=== PATIENT | male | born 1995 | race Caucasian/White ===

== ENCOUNTER 2017-02-24 21:00 | Inpatient (IN) | payer OTHER ==
[~2017-02-24] VITALS: Ht 172.7 cm; Wt 59.0 kg
[~2017-02-24 21:00] MED LIST: AMOXICILLIN 50500 MG; FLEXERIL PO; TESSALON PERLE100 MG; ULTRAM 50MG TAB50 MG PO
[2017-02-24] MEDS ORDERED: CARISOPRODOL 3350 MG PO (21:17)
[2017-02-24] MEDS ORDERED: NEURONTIN 300300 M1 PO (21:17)
[2017-02-24 21:18] VITALS: BP 117/73
[2017-02-24 21:18] LABS: URINE BLOOD NEGATIVE (Negative); URINE CLARITY CLEAR; URINE COLOR YELLOW; URINE GLUCOSE-RANDOM NEGATIVE (Negative); URINE KETONES NEGATIVE (Negative); URINE LEUKOCYTES-REFLEX NEGATIVE (Negative); URINE NITRITE-REFLEX NEGATIVE (Negative); URINE PROTEIN NEGATIVE (Negative); URINE SPECIFIC GRAVITY >= 1.030 (1.005-1.030)
[2017-02-24 21:19] LABS: ICTOTEST (BILI CONFIRMATORY) Negative (Negative); URINE BILIRUBIN 1+ (Negative)
[2017-02-24 21:30] LABS: ABSOLUTE EOSINOPHILS 0.1 thou/uL (0.0-0.7); ABSOLUTE LYMPHOCYTES 1.2 thou/uL (0.8-5.3); ABSOLUTE MONOCYTES 0.5 thou/uL (0.0-1.2); ABSOLUTE NEUTROPHILS 5.5 thou/uL (1.6-8.1); BASOPHILS 0.7 %; EOSINOPHILS 0.7 %; HEMATOCRIT 45.1 % (42.0-52.0); HEMOGLOBIN 15.6 gm/dL (14.0-18.0); LYMPHOCYTES 16.8 %; MCH 30.1 pg (26.0-34.0); MCHC 34.6 g/dL (28.0-37.0); MCV 87.1 fL (80.0-100.0); MPV 8.5 fl. (7.2-11.1); NUCLEATED RBCS 0 /100WBC; PLATELET COUNT* 220 thou/uL (150-400); POLYS 74.8 %; RBC 5.18 mil/uL (4.50-6.00); RDW-CV 13.5 % (10.5-14.5); WBC 7.3 thou/uL (4.0-11.0)
[2017-02-24 21:38] LABS: CALCIUM 8.6 mg/dL (8.5-10.1); CREATININE 0.9 mg/dL (0.6-1.3); POTASSIUM 3.9 mmol/L (3.5-5.1)
[2017-02-24 21:42] LABS: ALBUMIN 4.1 g/dL (3.4-5.0); TOTAL BILIRUBIN 5.3 mg/dL (<0.1-1.0); TOTAL PROTEIN 7.1 g/dL (6.4-8.2)
[2017-02-25 01:15] VITALS: BP 117/73
[2017-02-25 01:20] VITALS: BP 105/61
[2017-02-25 07:55] VITALS: BP 109/68
[2017-02-25 12:44] LABS: ABSOLUTE LYMPHOCYTES 1.3 thou/uL (0.8-5.3); ABSOLUTE MONOCYTES 0.3 thou/uL (0.0-1.2); ABSOLUTE NEUTROPHILS 2.8 thou/uL (1.6-8.1); BASOPHILS 0.8 %; HEMATOCRIT 40.5 % (42.0-52.0); HEMOGLOBIN 14.2 gm/dL (14.0-18.0); LYMPHOCYTES 29.5 %; MCH 30.4 pg (26.0-34.0); MCHC 35.2 g/dL (28.0-37.0); MCV 86.4 fL (80.0-100.0); MONOCYTES 7.1 %; MPV 8.1 fl. (7.2-11.1); NUCLEATED RBCS 0 /100WBC; PLATELET COUNT* 169 thou/uL (150-400); POLYS 61.6 %; RBC 4.68 mil/uL (4.50-6.00); RDW-CV 13.4 % (10.5-14.5); WBC 4.5 thou/uL (4.0-11.0)
[2017-02-25 13:06] LABS: ALBUMIN 3.6 g/dL (3.4-5.0); CALCIUM 8.2 mg/dL (8.5-10.1); CREATININE 0.9 mg/dL (0.6-1.3); POTASSIUM 3.8 mmol/L (3.5-5.1); TOTAL BILIRUBIN 7.6 mg/dL (<0.1-1.0); TOTAL PROTEIN 6.2 g/dL (6.4-8.2)
[2017-02-25 16:00] VITALS: BP 97/57
[2017-02-25 20:30] VITALS: BP 102/61
[2017-02-26 00:57] VITALS: BP 102/61
[2017-02-26 03:54] VITALS: BP 97/48
[2017-02-26 04:05] LABS: ABSOLUTE EOSINOPHILS 0.1 thou/uL (0.0-0.7); ABSOLUTE LYMPHOCYTES 1.5 thou/uL (0.8-5.3); ABSOLUTE MONOCYTES 0.3 thou/uL (0.0-1.2); ABSOLUTE NEUTROPHILS 2.6 thou/uL (1.6-8.1); BASOPHILS 0.8 %; EOSINOPHILS 2.3 %; HEMOGLOBIN 13.8 gm/dL (14.0-18.0); MCH 30.2 pg (26.0-34.0); MCHC 34.6 g/dL (28.0-37.0); MCV 87.5 fL (80.0-100.0); MONOCYTES 6.2 %; MPV 8.9 fl. (7.2-11.1); NUCLEATED RBCS 0 /100WBC; PLATELET COUNT* 165 thou/uL (150-400); POLYS 57.7 %; RBC 4.58 mil/uL (4.50-6.00); RDW-CV 13.4 % (10.5-14.5); WBC 4.5 thou/uL (4.0-11.0)
[2017-02-26 05:43] LABS: ALBUMIN 3.3 g/dL (3.4-5.0); CALCIUM 7.9 mg/dL (8.5-10.1); MAGNESIUM 2.2 mg/dL (1.8-2.4); POTASSIUM 3.8 mmol/L (3.5-5.1); TOTAL BILIRUBIN 5.3 mg/dL (<0.1-1.0); TOTAL PROTEIN 5.8 g/dL (6.4-8.2)
[2017-02-26 07:45] VITALS: BP 103/59
[2017-02-26 15:58] VITALS: BP 114/68
[2017-02-26 23:30] VITALS: BP 104/67
[2017-02-27 04:47] LABS: HEMATOCRIT 38.2 % (42.0-52.0); HEMOGLOBIN 13.5 gm/dL (14.0-18.0); MCH 30.8 pg (26.0-34.0); MCHC 35.5 g/dL (28.0-37.0); MCV 86.7 fL (80.0-100.0); MPV 8.8 fl. (7.2-11.1); RBC 4.4 mil/uL (4.50-6.00); RDW-CV 13.2 % (10.5-14.5); WBC 5.1 thou/uL (4.0-11.0)
[2017-02-27 04:59] LABS: ALBUMIN 3.3 g/dL (3.4-5.0); CALCIUM 7.9 mg/dL (8.5-10.1); POTASSIUM 3.4 mmol/L (3.5-5.1); TOTAL BILIRUBIN 4.9 mg/dL (<0.1-1.0); TOTAL PROTEIN 5.7 g/dL (6.4-8.2)
[2017-02-27 09:30] VITALS: BP 110/68
[2017-02-28] VITALS: BP 127/79
[2017-02-28 04:00] VITALS: BP 121/77
[2017-02-28 04:47] LABS: ABSOLUTE LYMPHOCYTES 1.2 thou/uL (0.8-5.3); ABSOLUTE MONOCYTES 0.5 thou/uL (0.0-1.2); ABSOLUTE NEUTROPHILS 4.3 thou/uL (1.6-8.1); BASOPHILS 0.5 %; EOSINOPHILS 0.6 %; HEMATOCRIT 41.3 % (42.0-52.0); HEMOGLOBIN 14.7 gm/dL (14.0-18.0); LYMPHOCYTES 19.8 %; MCH 30.5 pg (26.0-34.0); MCHC 35.4 g/dL (28.0-37.0); MCV 85.9 fL (80.0-100.0); MONOCYTES 8.1 %; MPV 8.9 fl. (7.2-11.1); NUCLEATED RBCS 0 /100WBC; PLATELET COUNT* 162 thou/uL (150-400); RBC 4.81 mil/uL (4.50-6.00); RDW-CV 13.4 % (10.5-14.5)
[2017-02-28 05:11] LABS: ALBUMIN 3.3 g/dL (3.4-5.0); CALCIUM 7.9 mg/dL (8.5-10.1); MAGNESIUM 1.9 mg/dL (1.8-2.4); POTASSIUM 3.3 mmol/L (3.5-5.1); TOTAL BILIRUBIN 6.7 mg/dL (<0.1-1.0); TOTAL PROTEIN 5.4 g/dL (6.4-8.2)
[2017-02-28 09:00] VITALS: BP 114/65
[2017-02-28 16:15] VITALS: BP 124/86
[2017-02-28 20:00] VITALS: BP 118/67
[2017-03-01 00:09] VITALS: BP 118/79
[2017-03-01 03:10] VITALS: BP 115/71
[2017-03-01 04:10] VITALS: BP 121/82
[2017-03-01 06:16] LABS: HEMATOCRIT 41.4 % (42.0-52.0); HEMOGLOBIN 14.8 gm/dL (14.0-18.0); MCH 30.3 pg (26.0-34.0); MCHC 35.7 g/dL (28.0-37.0); MCV 84.8 fL (80.0-100.0); MPV 8.6 fl. (7.2-11.1); RBC 4.88 mil/uL (4.50-6.00); RDW-CV 13.4 % (10.5-14.5); WBC 4.6 thou/uL (4.0-11.0)
[2017-03-01 06:28] LABS: ALBUMIN 3.2 g/dL (3.4-5.0); CALCIUM 8.1 mg/dL (8.5-10.1); MAGNESIUM 1.8 mg/dL (1.8-2.4); POTASSIUM 3.9 mmol/L (3.5-5.1); TOTAL BILIRUBIN 8.3 mg/dL (<0.1-1.0); TOTAL PROTEIN 5.8 g/dL (6.4-8.2)
[2017-03-01 10:15] VITALS: BP 103/53
--- NOTE | 2017-03-01 15:36 | S ---
[address] [address] SURGICAL PATH RPT PROCEDURE Name: EDDIE HUERTA Room: [address] IN [facility]#: [id number] Admission: 02/24/17 Date of : 89 Discharge: Report #: [id number] Path Case #: [id number] PATHOLOGY REPORT COLLECTION DATE: 02/27/2017 RECEIVED DATE: 02/28/2017 SUBMITTING PHYS: Dr. Eddie Li OTHER PHYS: Dr. Elvis Amezquita SPECIMEN(S) RECEIVED: A.Gallbladder and contents * * * * * * * * * * * * FINAL DIAGNOSIS: Gallbladder and contents: - Chronic cholecystitis and cholelithiasis. (CHERYL:pit; 03/01/2017) PATHOLOGIST: Mark Neves M.D. REPORT ELECTRONICALLY SIGNED BY: Mark Neves M.D. DATE/TIME: 03/01/2017 15:21 * * * * * * * * * * * * GROSS PATHOLOGY: Received in formalin labeled "Eddie Huerta, gallbladder and contents," is a 9.3 x 3.6 x 2.4 cm, intact gallbladder with dark green, slightly vascular serosal surfaces. Opening the gallbladder reveals dark joaquin, velvety mucosa and an average wall thickness of 0.2 cm. Calculi are present, ranging size from 0.1-0.3 cm, possessing a dark black and sludgy appearance, and feeling friable to the touch. No masses are noted grossly. Financial Services Specialist sections from the body and fundus are submitted along with the proximal margin in cassette A1. (TSD; 02/28/2017) CLINICAL HISTORY: Choledocholithiasis INITIAL CPT CODE(S): A; 40440 Professional services performed [place] [facility] [place] [address] Technical services performed by [facility] at [address] [place] [address], [facility] [address] [address]. [place] [address] SURGICAL PATH RPT PROCEDURE Name: EDDIE HUERTA Room: [address] IN [facility].#: [id number] Admission: 02/24/17 Date of : 89 Discharge: Report #: [id number] Path Case #: [id number] [facility] [place] [address] PHONE: [phone] DIRECTOR: Yehuda Vigil M.D. * * * END OF REPORT * * *
[2017-03-01 20:00] VITALS: BP 122/65
[2017-03-02 04:13] LABS: ALBUMIN 3.1 g/dL (3.4-5.0); DIRECT BILIRUBIN 1.7 mg/dL (<0.1-0.3); TOTAL BILIRUBIN 5.3 mg/dL (<0.1-1.0); TOTAL PROTEIN 5.8 g/dL (6.4-8.2)
[2017-03-02 08:38] VITALS: BP 117/63
[2017-03-02 14:22] LABS: ABSOLUTE EOSINOPHILS 0.1 thou/uL (0.0-0.7); ABSOLUTE LYMPHOCYTES 0.7 thou/uL (0.8-5.3); ABSOLUTE MONOCYTES 0.5 thou/uL (0.0-1.2); ABSOLUTE NEUTROPHILS 4.3 thou/uL (1.6-8.1); BASOPHILS 0.5 %; EOSINOPHILS 2.5 %; HEMATOCRIT 44.5 % (42.0-52.0); HEMOGLOBIN 15.6 gm/dL (14.0-18.0); MCH 30.4 pg (26.0-34.0); MCHC 35.1 g/dL (28.0-37.0); MCV 86.7 fL (80.0-100.0); MONOCYTES 8.3 %; MPV 8.1 fl. (7.2-11.1); NUCLEATED RBCS 0 /100WBC; PLATELET COUNT* 165 thou/uL (150-400); POLYS 75.7 %; RBC 5.13 mil/uL (4.50-6.00); RDW-CV 13.5 % (10.5-14.5); WBC 5.8 thou/uL (4.0-11.0)
[2017-03-02 20:30] VITALS: BP 99/64
[2017-03-03 00:17] VITALS: BP 106/67
[2017-03-03 04:14] LABS: ABSOLUTE EOSINOPHILS 0.3 thou/uL (0.0-0.7); ABSOLUTE LYMPHOCYTES 1.2 thou/uL (0.8-5.3); ABSOLUTE MONOCYTES 0.5 thou/uL (0.0-1.2); ABSOLUTE NEUTROPHILS 3.3 thou/uL (1.6-8.1); BASOPHILS 0.7 %; EOSINOPHILS 4.9 %; HEMATOCRIT 42.2 % (42.0-52.0); HEMOGLOBIN 15.1 gm/dL (14.0-18.0); LYMPHOCYTES 22.1 %; MCH 30.5 pg (26.0-34.0); MCHC 35.7 g/dL (28.0-37.0); MCV 85.4 fL (80.0-100.0); MONOCYTES 8.9 %; MPV 8.7 fl. (7.2-11.1); NUCLEATED RBCS 0 /100WBC; PLATELET COUNT* 162 thou/uL (150-400); POLYS 63.4 %; RBC 4.94 mil/uL (4.50-6.00); RDW-CV 13.5 % (10.5-14.5); WBC 5.2 thou/uL (4.0-11.0)
[2017-03-03 04:15] VITALS: BP 103/65
[2017-03-03 04:31] LABS: ALBUMIN 3.2 g/dL (3.4-5.0); CALCIUM 8.2 mg/dL (8.5-10.1); POTASSIUM 3.2 mmol/L (3.5-5.1); TOTAL BILIRUBIN 3.9 mg/dL (<0.1-1.0); TOTAL PROTEIN 5.9 g/dL (6.4-8.2)
[2017-03-03 08:55] VITALS: BP 111/68
[2017-03-03 15:50] VITALS: BP 118/68
[2017-03-04 00:38] VITALS: BP 117/69
[2017-03-04 08:15] VITALS: BP 112/65
[2017-03-04] MEDS ORDERED: ZOFRAN ODT4 MG PO (08:20)
[2017-03-04] MEDS ORDERED: COLACE100 MG PO ×2 (08:20→16:27)
[2017-03-04] MEDS ORDERED: AUGMENTIN 875-1 EACH PO ×2 (08:20→16:23)
[2017-03-04 09:23] LABS: HEMATOCRIT 45.3 % (42.0-52.0); HEMOGLOBIN 15.7 gm/dL (14.0-18.0); MCHC 34.7 g/dL (28.0-37.0); WBC 4.8 thou/uL (4.0-11.0)
[2017-03-04 09:24] LABS: ABSOLUTE BASOPHILS 0.1 thou/uL (0.0-0.2); ABSOLUTE EOSINOPHILS 0.2 thou/uL (0.0-0.7); ABSOLUTE MONOCYTES 0.4 thou/uL (0.0-1.2); ABSOLUTE NEUTROPHILS 3.1 thou/uL (1.6-8.1); BASOPHILS 1.2 %; EOSINOPHILS 5.1 %; LYMPHOCYTES 21.2 %; MCV 86.5 fL (80.0-100.0); MONOCYTES 7.8 %; MPV 8.7 fl. (7.2-11.1); NUCLEATED RBCS 0 /100WBC; PLATELET COUNT* 174 thou/uL (150-400); POLYS 64.7 %; RBC 5.24 mil/uL (4.50-6.00); RDW-CV 13.5 % (10.5-14.5)
[2017-03-04 09:32] LABS: ALBUMIN 3.5 g/dL (3.4-5.0); CALCIUM 8.4 mg/dL (8.5-10.1); CREATININE 1.1 mg/dL (0.6-1.3); POTASSIUM 3.8 mmol/L (3.5-5.1); TOTAL BILIRUBIN 3.5 mg/dL (<0.1-1.0); TOTAL PROTEIN 6.5 g/dL (6.4-8.2)
[2017-03-04 15:50] VITALS: BP 112/65
[2017-03-04 16:00] VITALS: BP 113/72
[2017-03-04 17:52] VITALS: BP 112/65
--- NOTE | 2017-03-11 20:23 | OP ---
[address] [address] OPERATIVE REPORT Name: EDDIE STONE Room: [address]#: [id number] Admission: 02/24/17 Attend Phys: Elvis Amezquita MD Discharge: 03/04/17 Date of : 89 Report #: [id number] THIS REPORT FOR: //name// CC: Elvis Amezquita [facility] physician/PCP DICTATED BY: Hillary Landon DO DATE OF SERVICE: 02/27/2017 PREOPERATIVE DIAGNOSES: Cholelithiasis and cholecystitis. POSTOPERATIVE DIAGNOSES: Cholelithiasis, cholecystitis and choledocholithiasis. SURGEON: Hillary Landon DO, PGY5. SUPERVISING SURGEON: Eddie Li DO. WAX PATTERN REPAIRER: MS3. PROCEDURE: Laparoscopic cholecystectomy with intraoperative cholangiogram. ANESTHESIA: General endotracheal and local. ESTIMATED BLOOD LOSS: 25 mL. SPECIMENS: Gallbladder. COMPLICATIONS: None. DISPOSITION: PACU to med/surg. OPERATIVE DETAILS: After obtaining proper informed consent, the patient was brought to the operating room and laid supine on the operating table. He had been receiving scheduled antibiotics on the floor. He was sedated and intubated under the benefit of general anesthesia. Abdomen was then prepped and draped in the usual sterile fashion and timeout was performed. Supraumbilical incision was made, and dissection of subcutaneous tissue was carried out with cautery to the level of the fascia. A nicking incision was made in the fascia, and fascia was grasped with two Emilie clamps and elevated. Fascial incision was extended slightly superiorly and inferiorly, and peritoneum was entered bluntly with the use of the hemostat. Finger was placed in the abdomen, and peritoneum was swept and found to be free of adhesions. [id number] 0 Vicryl retention sutures were placed in the fascia. A Migue trocar was placed in the abdomen, and the abdomen was insufflated. The patient was placed slightly head up and rolled to the left. An 11 mm trocar was placed in the subxiphoid [place] [address] OPERATIVE REPORT Name: EDDIE STONE Room: [address] IN [facility]#: [id number] Admission: 02/24/17 Attend Phys: Elvis Amezquita MD Discharge: 03/04/17 Date of : 89 Report #: [id number] visualization and followed by two 5 mm trocars in the right lateral abdomen, again under direct visualization. Gallbladder was found to be quite distended. It was grasped and elevated cephalad over the liver. Aspiration needle was used to decompress the gallbladder with thick dark green bile returned. De La Rosa pouch was grasped and peritoneum was incised with cautery. It was quite edematous. Careful dissection of the Ransom pouch was carried out. We were able to see our common bile duct, which was away from our area of dissection. Cystic duct was carefully dissected out with [place] dissector and clip was placed proximally. A nicking incision was made in the cystic duct. A TauT catheter was brought through the anterior abdominal wall. Catheter was placed in the cystic duct, and it was secured with an endoclip. The patient was then flattened and C-arm was brought in. Cholangiogram was performed with good visualization of the intrahepatic biliary tree. He did have several small stones in the distal common bile duct with no visualization of the duodenum. He was given 1 mg of Glucagon per Anesthesia, and multiple attempts were made to flush the stones without significant improvement in drainage of contrast material into the duodenum. The patient was then returned to head-up and rolled to the left. Catheter was removed. Additional three endoclips were placed on the proximal cystic duct, and this was ligated with scissors. Cystic artery was insufflated posterior to this and 2 clips were placed proximally and 1 distally. Careful dissection of the gallbladder was carried out removing it from the liver bed until it was completely dissected free of the liver. I placed in an EndoCatch bag. Gallbladder fossa was inspected, and hemostasis was assured with cautery. Copious irrigation of the right upper quadrant and gallbladder fossa was carried out until the irrigation fluid was clear and suctioned free of the abdomen. A 15-Portuguese ELOISE drain was placed in the right upper quadrant. The abdomen was desufflated, and trocars were removed under direct visualization with no evidence of bleeding. Drain was secured with a 2-0 nylon stitch. An additional 2 [id number]-ps-[id number] 0 Vicryl sutures were placed in the fascia of the supraumbilical incision with good approximation. Local infiltration of 0.5% Marcaine was injected around all incisions, totalling 30 mL. Skin of all incisions was closed with 4-0 Monocryl, followed by Mastisol, Steri-Strips, and sterile Tegaderm dressing and gauze pressure dressing. All counts were correct at the end of the case. Drapes removed, and the patient was awoken and extubated and brought to PACU in good condition for further recovery. Dr. Cunha of Gastroenterology, who was previously on board patient's case, was contacted for need for an ERCP for retained choledocholithiasis. Dr. Eddie Li was present and scrubbed for the entirety of the procedure. <ELECTRONICALLY SIGNED> By: Eddie Li DO 03/11/172022 1207 [id number] Li DO /nt
--- NOTE | 2017-03-12 16:26 | CON ---
[address] [address] CONSULTATION Name: ANTONI STONE Room: [address]#: [id number] Admission: 02/24/17 Attend Phys: Elvis Amezquita MD Discharge: 03/04/17 Date of : 89 Report #: [id number] THIS REPORT FOR: //name// CC: Elvis Amezquita [facility] physician/PCP DATE OF SERVICE: 02/28/2017 REASON FOR CONSULT: Abnormal liver enzymes. HISTORY OF PRESENT ILLNESS: This is a 22-year-old male with abdominal pain and elevated liver enzymes, who had imaging studies suggestive of cholelithiasis and acute cholecystitis. The patient underwent laparoscopic cholecystectomy and found to have choledocholithiasis. We were consulted for evaluation of ERCP. He complains of nausea and abdominal pain. He has a drain at the site of cholecystectomy. PAST MEDICAL HISTORY: Significant for history of Neves's palsy, chronic back pain, Guillain-[place], and paraesthesia associated with the same. ALLERGIES: No known drug allergy. MEDICATIONS: Please refer to hospital MAR. SOCIAL HISTORY: The patient denies tobaccoism, may occasionally have alcoholic beverage 1-2 beer per week. FAMILY HISTORY: Negative for GI malignancy. PHYSICAL EXAMINATION: VITAL SIGNS: Reveals normal vitals. LUNGS: Clear. CARDIOVASCULAR: Regular. ABDOMEN: Soft, tender to palpation in the right upper quadrant and epigastric region. Bowel sounds are positive. NEUROLOGIC: The patient is alert, oriented x 3. LABS: Reveal sodium of 144, potassium 3.3, BUN is 2, creatinine 1.0, glucose 98, AST is 91. Total bilirubin is 6.7, ALT is 211, alkaline phosphatase 85, albumin 3.3. Hemoglobin is 14.7 with WBC of 6.0 and platelet of 162. IMAGING: As discussed above. ASSESSMENT AND PLAN: The patient with a history of gallbladder disease, status post cholecystectomy who has choledocholithiasis. [place] [address] CONSULTATION Name: ANTONI STONE Room: [address]#: [id number] Admission: 02/24/17 Attend Phys: Elvis Amezquita MD Discharge: 03/04/17 Date of : 89 Report #: [id number] the ERCP with sphincterotomy and stone extraction. The patient and family are agreeable with plan. <ELECTRONICALLY SIGNED> By: Levon Cunha MD 03/12/17 1626 [id number] 1921Levon Cunha MD /nt
== END 2017-03-04 17:52 | disposition home or self-care (01) | DRG 417 ==
LOC: M.ERS 21:00 → M.3W 23:47 → M.TBA-ER 23:47 → M.3W 02-25 00:55
PROVIDERS: Internal Medicine; Internal Medicine Gastroenterology; Physician Assistant; Surgery; ADMIT Internal Medicine
PROC: BF131ZZ Fluoroscopy of Gallbladder and Bile Ducts using Low Osmolar Contrast (ICD-10-PCS; principal; 2017-02-27)
PROC: 0FT44ZZ Resection of Gallbladder, Percutaneous Endoscopic Approach (ICD-10-PCS; principal; 2017-02-27)
PROC: 0FC98ZZ Extirpation of Matter from Common Bile Duct, Via Natural or Artificial Opening Endoscopic (ICD-10-PCS; 2017-02-28)
DX: K80.62 Calculus of gallbladder and bile duct with acute cholecystitis without obstruction (principal); K85.90 Acute pancreatitis without necrosis or infection, unspecified; G61.0 Guillain-Barre syndrome; G24.8 Other dystonia; G89.29 Other chronic pain; M54.9 Dorsalgia, unspecified; E80.6 Other disorders of bilirubin metabolism; K75.9 Inflammatory liver disease, unspecified; G51.0 Bell's palsy; T42.6X5A Adverse effect of other antiepileptic and sedative-hypnotic drugs, initial encounter; Z79.899 Other long term (current) drug therapy; Y92.89 Other specified places as the place of occurrence of the external cause

== ENCOUNTER 2019-03-26 14:04 | Emergency (ER) | payer OTHER ==
[~2019-03-26] VITALS: Ht 175.3 cm; Wt 63.5 kg
[~2019-03-26 14:04] MED LIST changes: +AUGMENTIN 875-1 EACH PO; +CARISOPRODOL 3350 MG PO; +COLACE100 MG PO; +NEURONTIN 300300 M1 PO; +ZOFRAN ODT4 MG PO
[2019-03-26 15:26] LABS: ABSOLUTE BASOPHILS 0.1 thou/uL (0.0-0.2); ABSOLUTE EOSINOPHILS 0.1 thou/uL (0.0-0.7); ABSOLUTE LYMPHOCYTES 1.9 thou/uL (0.8-5.3); ABSOLUTE MONOCYTES 0.4 thou/uL (0.0-1.2); ABSOLUTE NEUTROPHILS 4.9 thou/uL (1.6-8.1); EOSINOPHILS 1.1 %; HEMATOCRIT 45.1 % (42.0-52.0); HEMOGLOBIN 16.4 gm/dL (14.0-18.0); LYMPHOCYTES 25.5 %; MCH 30.5 pg (26.0-34.0); MCHC 36.4 g/dL (28.0-37.0); MCV 83.9 fL (80.0-100.0); MONOCYTES 5.4 %; MPV 8.4 fl. (7.2-11.1); NUCLEATED RBCS 0 /100WBC; PLATELET COUNT* 208 thou/uL (150-400); RBC 5.38 mil/uL (4.50-6.00); RDW-CV 13.3 % (10.5-14.5); WBC 7.3 thou/uL (4.0-11.0)
[2019-03-26 15:40] LABS: CALCIUM 8.5 mg/dL (8.5-10.1); POTASSIUM 3.5 mmol/L (3.5-5.1)
[2019-03-26 15:44] LABS: ALBUMIN 4.2 g/dL (3.4-5.0); TOTAL BILIRUBIN 3.6 mg/dL (<0.1-1.0); TOTAL PROTEIN 7.4 g/dL (6.4-8.2)
[2019-03-26] MEDS ORDERED: NORCO 5-325 TA1 EAC1 PO (15:47)
[2019-03-26 15:55] VITALS: BP 131/88
== END 2019-03-26 15:56 | disposition home or self-care (01) ==
LOC: M.ERS 14:04
PROVIDERS: Emergency Medicine Emergency Medical Services
DX: R10.11 Right upper quadrant pain (principal); Z88.8 Allergy status to other drugs, medicaments and biological substances